=== PATIENT | male | born 1995 | race Caucasian/White ===

== ENCOUNTER 2016-09-23 15:08 | Emergency (ER) | payer OTHER ==
[~2016-09-23] VITALS: Ht 180.3 cm; Wt 74.8 kg
[~2016-09-23 15:08] MED LIST: NOHOMEMEDICATIONS; ZOFRAN ODT4 MG PO
[2016-09-23 15:46] LABS: URINE BLOOD NEGATIVE (Negative); URINE COLOR YELLOW; URINE GLUCOSE-RANDOM* NEGATIVE (Negative); URINE KETONES 2+ (Negative); URINE NITRITE NEGATIVE (Negative); URINE PROTEIN (DIPSTICK) 2+ (Negative); URINE SPECIFIC GRAVITY 1.025 (1.003-1.035)
[2016-09-23 15:47] LABS: URINE BILIRUBIN NEGATIVE (Negative)
[2016-09-23 15:50] LABS: CASTS None Seen /LPF (None Seen); CRYSTALS None Seen /LPF (None Seen); SQUAMOUS None Seen /LPF (0-3); URINE RBC None Seen /HPF (0-2); URINE WBC 6-15 Few /HPF (0-5)
[2016-09-23 16:49] LABS: ABSOLUTE NEUTROPHILS 9.5 thou/uL (1.4-8.2); BASOPHILS 0.5 % (0.0-2.0); EOSINOPHILS 0.5 % (0.0-3.0); HEMATOCRIT 45.4 % (42.0-52.0); HEMOGLOBIN 15.6 gm/dL (14.0-18.0); LYMPHOCYTES 12.6 % (24.0-44.0); MCH 31.5 pg (26.0-34.0); MCHC 34.3 g/dL (28.0-37.0); MCV 91.9 fL (80.0-100.0); MONOCYTES 4.1 % (1.0-8.0); PLATELET COUNT 279 thou/uL (150-400); POLYS 82.3 % (36.0-66.0); RBC 4.94 mil/uL (4.50-6.00); RDW 13.2 % (10.5-14.5); WBC 11.5 thou/uL (4.0-11.0)
[2016-09-23 16:51] LABS: MANUAL DIFF NO
[2016-09-23 17:10] LABS: ALBUMIN 3.7 g/dL (3.4-5.0); CALCIUM 9.9 mg/dL (8.5-10.1); POTASSIUM 4.1 mmol/L (3.5-5.1); TOTAL BILIRUBIN 0.9 mg/dL (<0.1-1.0); TOTAL PROTEIN 7.6 g/dL (6.4-8.2)
[2016-09-23] MEDS ORDERED: BACTRIM DS TAB1 EACH PO (17:19)
[2016-09-23 18:35] VITALS: BP 121/79
== END 2016-09-23 18:36 | disposition home or self-care (01) ==
LOC: ER 15:08
PROVIDERS: Nurse Practitioner Family
DX: N39.0 Urinary tract infection, site not specified (principal); Z88.0 Allergy status to penicillin; Z88.1 Allergy status to other antibiotic agents